=== PATIENT | male | born 1950 | race Caucasian/White ===

== ENCOUNTER 2018-11-24 02:03 | Observation (INO) | payer MEDICARE, BC ==
[~2018-11-24] VITALS: Ht 190.5 cm; Wt 84.1 kg
[2018-11-24] MEDS ORDERED: METOPROLOL TART25 MG PO (02:11)
[2018-11-24] MEDS ORDERED: CRESTOR20 MG PO (02:11)
[2018-11-24] MEDS ORDERED: MULTIVITAMIN (02:12)
[2018-11-24] MEDS ORDERED: LECITHIN1200 MG PO (02:12)
[2018-11-24] MEDS ORDERED: [UNRECOGNIZED DRUG - CODE] (02:12)
[2018-11-24] MEDS ORDERED: CO Q-10200 MG PO (02:12)
[2018-11-24] MEDS ORDERED: FISH OIL (02:12)
[2018-11-24] MEDS ORDERED: ASPIRIN81 MG PO (02:13)
[2018-11-24 03:04] LABS: BASOPHILS 0.4 % (0-2); HEMATOCRIT 33.7 % (42.0-54.0); HEMOGLOBIN 11.3 g/dL (13.5-17.5); IMMATURE GRANULOCYTES 0.1 % (0-5); LYMPHOCYTES 47.3 % (15-50); MCH 33.1 pg (26.0-34.0); MCHC 33.5 g/dL (31.0-37.0); MCV 98.8 fL (80.0-100.0); MEAN PLATELET VOLUME 12.3 fL (7.4-10.4); MONOCYTES 9.4 % (2-11); NEUTROPHILS 38.8 % (40-80); PLATELET COUNT 125 10x3/uL (130-400); RBC 3.41 10x6/uL (4.20-6.10); RDW 13.8 % (11.5-14.5); WBC 7.2 10x3/uL (4.8-10.8)
[2018-11-24 03:13] VITALS: BP 141/68
[2018-11-24 03:19] LABS: TROPONIN-I 0.108 ng/mL (0.000-0.060)
[2018-11-24 04:00] VITALS: BP 123/65
--- NOTE | 2018-11-24 05:04 | NUR ---
ADMIT TO ROOM 211 FROM ER. ALERT/ORIENTED WITH AT BEDSIDE. AMBULATORY. ADMISSION HISTORY AND ASSESSMENT COMPLETED. IVF NS @ 100ML/HR INFUSING TO RIGHT WRIST 18G PIV. PT ALSO HAS AN 18G PIV TO LEFT HAND THAT IS SALINE LOCKED. ORIENTED TO UNIT. REVIEWED PLAN OF CARE. TELEMETRY 57 SINUS TYLER. MONITOR AND IMPLEMENT PLAN OF CARE.
[2018-11-24] MEDS ORDERED: FISH OIL 1,0001 CA1 PO (05:11)
[2018-11-24] MEDS ORDERED: MULTI-DAY VITAM1 TAB PO (05:12)
[2018-11-24 05:15] VITALS: BP 123/65; BMI 23.1
--- NOTE | 2018-11-24 06:50 | NUR ---
REPORT TO OFF GOING NURSE. PT RESTING WITH NO DISTRESS. MONITOR AND CPOC.
[2018-11-24 08:56] VITALS: BP 122/57
--- NOTE | 2018-11-24 09:09 | NUR ---
AWAKE AND ALERT.TELEMERTY SHOWS SR 69. IVS TO RIGHT AND LEFT WRIST. NS AT 100 GOING INTO THE RIGHT WRIST. DENIES ANY SYMPTOMS AT PRESENT TIME. FAMILY AT BEDSIDE
--- NOTE | 2018-11-24 10:55 | NUR ---
RESTING QUIETLY NAD NOTED MONITOR SHOWS SINUS TYLER RATE 53 NAD NOTED
[2018-11-24 12:00] VITALS: Ht 190.5 cm; Wt 84.1 kg
--- NOTE | 2018-11-24 14:27 | NUR ---
LYING QUIETLY. AT BEDSIDE. DENIES ANY NEEDS. TELEMERTY SHOWS SR. SR UP WITH CALL LIGHT IN REACH
[2018-11-24 19:00] VITALS: BP 111/56
--- NOTE | 2018-11-25 02:15 | NUR ---
RESTING IN BED WITH EYES CLOSED. NO DISTRESS. MONITOR AND CPOC..
[2018-11-25 04:00] VITALS: BP 134/65
[2018-11-25 05:21] LABS: BASOPHILS 0.4 % (0-2); EOSINOPHILS 3.7 % (0-7); HEMATOCRIT 37.8 % (42.0-54.0); HEMOGLOBIN 12.8 g/dL (13.5-17.5); IMMATURE GRANULOCYTES 0.1 % (0-5); LYMPHOCYTES 44.3 % (15-50); MCH 33.2 pg (26.0-34.0); MCHC 33.9 g/dL (31.0-37.0); MCV 97.9 fL (80.0-100.0); NEUTROPHILS 40.5 % (40-80); PLATELET COUNT 127 10x3/uL (130-400); RBC 3.86 10x6/uL (4.20-6.10)
[2018-11-25 05:42] LABS: ALBUMIN 3.8 g/dL (3.4-5.0); ALKALINE PHOSPHATASE 49 U/L (46-116); ALT (SGPT) 29 U/L (10-68); BILIRUBIN - TOTAL 0.72 mg/dL (0.2-1.3); CALC OSMOLALITY 279 mosm/kg (275-300); CALCIUM 8.7 mg/dL (8.5-10.1); CARBON DIOXIDE 26.2 mmol/L (21.0-32.0); CHLORIDE - SERUM 102 mmol/L (98-107); GLUCOSE 107 mg/dL (74-106); POTASSIUM - SERUM 4.1 mmol/L (3.5-5.1); PROTEIN - SERUM 7.1 g/dL (6.4-8.2); SODIUM 139 mmol/L (136-145); eGFR NON AFRICAN AMERICAN 78 mL/min (90-120)
[2018-11-25 05:43] LABS: UREA NITROGEN 19 mg/dL (7-18)
--- NOTE | 2018-11-25 06:47 | NUR ---
PT AWAKE,ALERT AND HAS SHOWERED AND DRESSED TO BE READY FOR DISCHARGE TODAY. HE REPORTS THAT HE HAS BEEN VERY PLEASED WITH THE CARE HE HAS RECIEVED AND LIKED ALL OF THE DOCTORS THAT ROUNDED ON HIM.
--- NOTE | 2018-11-25 07:41 | NUR ---
ALERT AND ORIENTED. TELEMERTY SHOWS SR. LEFT FA SL PATENT. DENIES ANY NEEDS. CALL LIGHT IN REACH
--- NOTE | 2018-11-25 08:35 | NUR ---
PT DISCHARGED. IV DCD WITH TIP INTACT. TO PRIVATE CAR PER WHEELCHAIR
--- NOTE | 2018-11-25 10:23 | EC ---
PATIENT:MICHAEL RODRIGUEZ DATE OF SERVICE: 11/24/18 SEX: M MEDICAL RECORD: [id number] DATE OF : [birth year] LOCATION:D.M2 D.211 AGE OF PATIENT: 68 ADMISSION DATE: 11/24/18 REFERRING PHYSICIAN: INTERPRETING PHYSICIAN: KAILA STONE MD ECHOCARDIOGRAM REPORT ECHO CHARGES 4 ECHO COMPLETE Date: 11/24/18 CLINICAL DIAGNOSIS: AVR ECHOCARDIOGRAPHIC MEASUREMENTS (adult normal given) AC root (d.<3.7cm) 3.8 cm LV Septum d (<1.2 cm> 2.0 cm Valve Excursion 1.7 cm LV Septum (systole) 2.1 cm Left Atria (s.<4.0cm> 3.9 cm LVPW d(<1.2cm) 1.0 cm RV (d.<2.3cm) 3.5 cm LVPW (sytole) 1.1 cm LV diastole(<5.6CM) 5.1 cm MV E-F(>70mm/sec) cm LV systole 4.4 cm LVOT Diameter 1.8 cm MV exc.(>10mm) cm Est.ejection fraction (50-75%) % DOPPLER: LVIT cm/sec A 65 cm/sec E 77 cm/sec LA cm/sec RVSP 38.8 mmHg LVOT 161 cm/sec AOP1/2T m/s Asc. Ao 252 cm/sec RVOT 70 cm/sec RA cm/sec PA 96 cm/sec AV Gradient Peak 25.5 mmHg AV Mean 13.3 mmHg AV Area 1.8 cm MV Gradient Peak 3.1 mmHg MV Mean 1.5 mmHg MV Area cm COMMENTS: Dial Brusher: Aubree [facility] Seed Potato Cutter: 1 Dr. Stone TAPE# PACS Pericardial Effusion N DATE OF SERVICE: FINDINGS: 1. Left ventricular chamber size is within normal limits. Left ventricular systolic function is normal. Overall ejection fraction estimated at 60%. 2. Left atrium is within normal limits. Right atrium and right ventricle chamber sizes are mildly dilated. 3. Valvular structures have normal structure and motion. 4. Doppler interrogation reveals ecbb-nw-lgytayoa mitral regurgitation, mild tricuspid regurgitation, no other valvular insufficiency or stenosis. Pulmonary ECHOCARDIOGRAM REPORT [id number] MICHAEL RODRIGUEZ systolic pressure is estimated 38 mmHg. 5. No evidence of pericardial effusion or left ventricular thrombus. TRANSINT:[id number] Voice Confirmation ID: [id number] DOCUMENT ID: [id number] KAILA STONE MD at 1023 CC: [id number] DICTATION DATE: 11/24/18 1143 SILK SCREEN PRINTER MACHINE: 11/24/18 1259 DIS IN 11/25/18 [id number] [place] [address]
--- NOTE | 2018-11-26 08:15 | MORECARE ---
CASE MANAGEMENT DISCHARGE SUMMARY PATIENT: MICHAEL RODRIGUEZ UNIT: [id number] ADM DATE: 11/24/18 AGE: 68 : 46 SEX: M ROOM/BED: D.2119 AUTHOR: LOUISA MALLORY PHYSICIAN: REFERRING PHYSICIAN: MANFRED SWEENEY MD DATE OF SERVICE: 11/26/18 Discharge Plan Patient Name: MICHAEL RODRIGUEZ Facility: [facility]:[place] : 1950 Planned Disposition: Home Anticipated Discharge Date: 11/25/18 Discharge Date: 11/25/2018 Expected LOS: 1 Initial Reviewer: [email or web address] Initial Review Date: 11/26/2018 Generated: 11/26/18 9:14 am Patient Name: MICHAEL RODRIGUEZ Page [id number] at 0815 All edits/amendments must be made on the electronic document DICTATION DATE: 11/26/18813 HEAD END DESIZING MACHINE OPERATOR: SUNNY 11/26/18813 RPT#: [id number] DC DATE:11/25/18 STATUS: DIS IN [facility] [address] [place] [address] END OF REPORT
== END 2018-11-25 08:36 | disposition home or self-care (01) ==
LOC: D.ER 02:03 → D.M2 03:45 → OBSVTIME 03:45 → D.M2 11-25 08:36
PROVIDERS: Emergency Medicine; Family Medicine; ADMIT Internal Medicine Nephrology
DX: G45.9 Transient cerebral ischemic attack, unspecified (principal); I48.0 Paroxysmal atrial fibrillation; R47.81 Slurred speech; R79.89 Other specified abnormal findings of blood chemistry; I95.9 Hypotension, unspecified; R00.1 Bradycardia, unspecified; R91.8 Other nonspecific abnormal finding of lung field; I25.10 Atherosclerotic heart disease of native coronary artery without angina pectoris; H53.9 Unspecified visual disturbance; E78.5 Hyperlipidemia, unspecified; Z72.0 Tobacco use

== ENCOUNTER → 2018-12-29 11:28 | Outpatient (CLI) | payer MEDICARE, BC ==
[2018-11-24 12:00] VITALS: BMI 23.1
[~2018-12-29 11:28] MED LIST: ASPIRIN81 MG PO; CO Q-10200 MG PO; CRESTOR20 MG PO; FISH OIL; FISH OIL 1,0001 CA1 PO; LECITHIN1200 MG PO; METOPROLOL TART25 MG PO; MULTI-DAY VITAM1 TAB PO; MULTIVITAMIN; [UNRECOGNIZED DRUG - CODE]
[2018-12-29 12:45] LABS: PLT FUNCT.(P2Y12) PLAVIX 232 PRU (194-418)
== END | disposition home or self-care (01) ==
LOC: D.LAB 11:28
DX: G45.9 Transient cerebral ischemic attack, unspecified (principal); Z51.81 Encounter for therapeutic drug level monitoring; Z79.01 Long term (current) use of anticoagulants